=== PATIENT | female | born 1965 | race Caucasian/White ===

== ENCOUNTER → 2017-01-09 | Emergency (ER) | payer OTHER ==
[~2017-01-09] MED LIST: ACETAMINOPHEN 500 MG TABLET (FP) PO ONE; ONDANSETRON 4 MG/2 ML VIAL IVPUSH ONE; ONDANSETRON 4 MG/2 ML VIAL ONE; SODIUM CHLORIDE 1,000 ML IV STA; morphine CARPU-JECT 4 MG/1 ML DISP.SYRIN IVPUSH ONE; morphine CARPU-JECT 4 MG/1 ML DISP.SYRIN ONE
[2017-01-09 21:09] VITALS: BP 156/103; PULSE 102; BMI 24.1
[2017-01-09 22:45] LABS: BASOPHIL 0.8 % (0-2.0); EOSINOPHIL 2.2 % (0-4.5); MCH 30.9 pg (25.7-33.7); MCHC 33.6 g/dl (32.0-36.0); NEUTROPHILS 59.8 % (42.8-82.8); PLATELET COUNT 195 K/MM3 (134-434); RDW 14.6 % (11.6-15.6); WHITE BLOOD COUNT 6.4 K/mm3 (4.0-10.0)
[2017-01-09 23:29] LABS: ALBUMIN 3.9 g/dl (3.4-5.0); ALK PHOS 138 U/L (45-117); ANION GAP 10 (8-16); BILIRUBIN,TOTAL 0.3 mg/dL (0.2-1.0); CO2 30 mmol/L (21-32); CREATININE 0.7 mg/dL (0.55-1.02); GLUCOSE,RANDOM 94 mg/dL (74-106); SGOT/AST 49 U/L (15-37); SGPT/ALT 102 U/L (12-78); TOT PROT 7.4 g/dl (6.4-8.2)
[2017-01-09 23:37] LABS: BILIRUBIN,DIRECT < 0.1 mg/dL (0.0-0.2)
--- NOTE | 2017-01-10 00:31 | PDOC ---
[id number] 100 01/09/17 21:07 01/09/17 21:07 01/09/17 21:07 01/09/17 21:07 ED Treatment Course - LABORATORY CBC & Chemistry Diagram: 01/09/17 22:40 01/09/17 22:40 - ADDITIONAL ORDERS Additional order review: Laboratory Results 01/09/17 01/09/17 22:40 22:40 Sodium 143 Potassium 3.5 Chloride 103 Carbon Dioxide 30 Anion Gap 10 BUN 12 Creatinine 0.7 Random Glucose 94 Calcium 10.0 Total Bilirubin 0.3 Direct Bilirubin < 0.1 AST 49 H ALT 102 H Alkaline Phosphatase 138 H Total Protein 7.4 Albumin 3.9 Total Amylase 66 01/09/17 22:40 RBC 4.05 MCV 92.0 MCHC 33.6 RDW 14.6 MPV 10.0 Neutrophils % 59.8 Lymphocytes % 29.1 Monocytes % 8.1 Eosinophils % 2.2 Basophils % 0.8 - Medications Given in the ED: ED Medications Discontinued Medications Generic Name Dose Route Start Last Admin Trade Name Freq PRN Reason Stop Dose Admin Acetaminophen 975 mg 01/09/17 21:09 01/09/17 23:04 Tylenol - PO 01/09/17 21:10 Not Given ONCE ONE Sodium Chloride 1,000 mls @ 1,000 mls/hr 01/09/17 22:31 01/09/17 23:04 Normal Saline - IV 01/09/17 23:30 1,000 mls/hr ASDIR STA Administration Morphine Sulfate 4 mg 01/09/17 22:31 01/09/17 23:04 Morphine Injection - IVPUSH 01/09/17 22:32 4 mg ONCE ONE Administration Ondansetron HCl 4 mg 01/09/17 22:31 01/09/17 23:04 Zofran Injection IVPUSH 01/09/17 22:32 4 mg ONCE ONE Administration Medical Decision Making - Medical Decision Making 01/10/17 00:31 agree with care from NAREN Cortes *DC/Admit/Observation/Transfer Diagnosis at time of Disposition: Abdominal pain, Fatty liver - Discharge Dispostion Disposition: HOME Condition at time of disposition: Improved - Prescriptions Prescriptions: Esomeprazole Magnesium [Nexium 24Hr] 20 mg PO DAILY #30 capsule. Oxycodone HCl/Acetaminophen [Percocet 5-325 mg Tablet] 1 tab PO Q6H PRN #20 tablet MDD 4 tabs PRN Reason: Severe Pain Ondansetron [Zofran Odt -] 4 mg SL Q6H PRN #20 od.tablet PRN Reason: Nausea - Referrals Referrals: Renee Lyles MD [Staff Physician] - STAFF,NOT ON [Primary Care Provider] - - Patient Instructions Printed Discharge Instructions: DI for Abdominal Pain-Adult Additional Instructions: SEGUIMIENTO CON EL DR. LYLES ESTA SEMANA PARA LA EVALUACIN ADICIONAL. LLAMAR PARA CALIFICAR LA SENAIT. RUDI MEDICAMENTOS ALICIA SE PRESCRIBE. NO CONDUZCA, KENDALL ALCOHOL, NI OPERE MAQUINAS PESADAS MIENTRAS SHAYNE PERCOCET. VUELVA SI JUAN S NTOMAS RESULTAN, O CUALESQUIERA PREOCUPACIONES PARA EVALUACIN MS. TODA CHANDRA PRUEBA ERA NEGATIVA. FOLLOW UP WITH DR. LYLES THIS WEEK FOR FURTHER EVALUATION. CALL TO SCHEDULE APPOINTMENT. TAKE MEDICATIONS PRESCRIBED. DO NOT DRIVE, DRINK ALCOHOL, OR OPERATE HEAVY MACHINERY WHILE TAKING PERCOCET. RETURN IF YOUR SYMPTOMS WORSEN, OR ANY CONCERNS FOR FUTHER EVALUATION. ALL YOUR TEST WERE NEGATIVE. Print Language: PORTUGUESE
--- NOTE | 2017-01-10 00:36 | PDOC ---
History of Present Illness - General Chief Complaint: Pain Stated Complaint: KIDNEY PAIN Time Seen by Provider: 01/09/17 21:04 History Source: Patient, Machine Shop Supervisor Used Exam Limitations: Language Barrier - History of Present Illness Travel History: No Initial Comments: 01/10/17 03:04 51yo Female patient presents to ED c/o Rt upper abd pain "under rib cage" x 3 weeks. Patient states she was seen and evaluated by her PMD this past Saturday, and prescribed Levaquin (UTI). However, patient reports pain worsened with associated chills. Denies n/v/d, fever, cough, CP, diff breathing, or any other complaints at this time. Timing/Duration: reports: constant, getting worse Quality: reports: severe Abdominal Pain Onset Location: reports: RUQ, epigastric Pain Radiation: reports: flank Activities at Onset: reports: no specific activity Treatment Prior to Arrive: improves with: analgesics Past History - Travel Traveled outside of the country in the last 30 days: No Close contact w/someone who was outside of country & ill: No - Past Medical History Allergies/Adverse Reactions: Allergies Allergy/AdvReac Type Severity Reaction Status Date / Time No Known Allergies Allergy Verified 01/09/17 21:06 Home Medications: Ambulatory Orders Levofloxacin [Levaquin -] 500 mg PO DAILY 01/09/17 Esomeprazole Magnesium [Nexium 24Hr] 20 mg PO DAILY #30 capsule. 01/10/17 Ondansetron [Zofran Odt -] 4 mg SL Q6H PRN #20 od.tablet 01/10/17 Oxycodone HCl/Acetaminophen [Percocet 5-325 mg Tablet] 1 tab PO Q6H PRN #20 tablet MDD 4 tabs 01/10/17 Psychiatric Problems: Yes (depression) - Psycho/Social/Smoking Cessation Hx Suicidal Ideation: No Smoking History: Never smoked Have you smoked in the past 12 months: No Information on smoking cessation initiated: No Hx Alcohol Use: No Drug/Substance Use Hx: No Substance Use Type: None Abd/GI Specific PMHX - Complaint Specific PMHX Colitis: No Diverticulitis: No Gall Bladder Disease: No GERD: No Hepatitis: No Irritable Bowel Synd (IBS): No Pancreatitis: No GI Ulcer Disease: No Review of Systems - Review of Systems Able to Perform ROS?: Yes Is the patient limited Maldivian proficient: Yes Constitutional: Yes: Chills. No: Fever, Night Sweats, Weakness Respiratory: No: Cough, Orthopnea, Shortness of Breath, Stridor, Wheezing, Hemoptysis Cardiac (ROS): No: Chest Pain, Edema, Lightheadedness, Palpitations, Syncope, Chest Tightness ABD/GI: No: Constipated, Diarrhea, Nausea, Poor Appetite, Poor Fluid Intake, Rectal Bleeding, Vomiting, Tarry Stools : Yes: Burning, Dysuria. No: Discharge, Flank Pain, Hematuria Musculoskeletal: Yes: Back Pain. No: Joint Swelling, Muscle Pain, Muscle Weakness, Joint Stiffness Integumentary: No: Bruising, Erythema, Rash Neurological: No: Headache, Numbness All Other Systems: Reviewed and Negative *Physical Exam - Vital Signs Last Vital Signs Temp Pulse Resp BP Pulse Ox 102 H 14 156/103 100 01/09/17 21:07 01/09/17 21:07 01/09/17 21:07 01/09/17 21:07 - Physical Exam General Appearance: Yes: Nourished, Appropriately Dressed, Apparent Distress, Moderate Distress. No: Mild Distress, Severe Distress Neck: positive: Trachea midline, Supple. negative: Decreased range of motion, Stridor, Lymphadenopathy (R), Lymphadenopathy (L) Respiratory/Chest: positive: Lungs Clear, Normal Breath Sounds. negative: Respiratory Distress, Accessory Muscle Use, Labored Respiration, Rapid RR, Crackles, Rales, Rhonchi, Stridor, Wheezing Cardiovascular: positive: Regular Rhythm, Regular Rate. negative: Edema, JVD, Murmur Gastrointestinal/Abdominal: positive: Normal Bowel Sounds, Tender (+ RUQ/ Epigastric), Soft. negative: Distended, Guarding, Rebound, Tenderness Lymphatic: negative: Adenopathy Musculoskeletal: positive: Normal Inspection. negative: CVA Tenderness Extremity: positive: Normal Capillary Refill, Normal Inspection, Normal Range of Motion, Pelvis Stable Integumentary: positive: Normal Color, Dry, Warm. negative: Erythema, Rash, Swelling Neurologic: positive: service planner II-XII NML intact, Fully Oriented, Alert, Normal Mood/ Affect, Normal Response, Motor Strength 5/5 ED Treatment Course - LABORATORY CBC & Chemistry Diagram: 01/09/17 22:40 01/09/17 22:40 - ADDITIONAL ORDERS Additional order review: Laboratory Results 01/09/17 01/09/17 22:40 22:40 Sodium 143 Potassium 3.5 Chloride 103 Carbon Dioxide 30 Anion Gap 10 BUN 12 Creatinine 0.7 Random Glucose 94 Calcium 10.0 Total Bilirubin 0.3 Direct Bilirubin < 0.1 AST 49 H ALT 102 H Alkaline Phosphatase 138 H Total Protein 7.4 Albumin 3.9 Total Amylase 66 01/09/17 22:40 RBC 4.05 MCV 92.0 MCHC 33.6 RDW 14.6 MPV 10.0 Neutrophils % 59.8 Lymphocytes % 29.1 Monocytes % 8.1 Eosinophils % 2.2 Basophils % 0.8 - RADIOLOGY Radiology Studies Ordered: Category Date Time Status GALLBLADDER US [US] Stat Ultrasound 01/09/17 22:32 Taken - Medications Given in the ED: ED Medications Discontinued Medications Generic Name Dose Route Start Last Admin Trade Name Freq PRN Reason Stop Dose Admin Acetaminophen 975 mg 01/09/17 21:09 01/09/17 23:04 Tylenol - PO 01/09/17 21:10 Not Given ONCE ONE Sodium Chloride 1,000 mls @ 1,000 mls/hr 01/09/17 22:31 01/09/17 23:04 Normal Saline - IV 01/09/17 23:30 1,000 mls/hr ASDIR STA Administration Morphine Sulfate 4 mg 01/09/17 22:31 01/09/17 23:04 Morphine Injection - IVPUSH 01/09/17 22:32 4 mg ONCE ONE Administration Ondansetron HCl 4 mg 01/09/17 22:31 01/09/17 23:04 Zofran Injection IVPUSH 01/09/17 22:32 4 mg ONCE ONE Administration Progress Note - Progress Note Progress Note: Name: Jun Cramer : 1965 Sex: F Study Date & Time: 01/09/201723:46:12 Description: GALLBLADDER US Machine Shop Supervisor: ([email or web address]) Begin of Report Content Referring Physician: Michaela Cortes Patient Name: Lianna Barahona THIS IS A PRELIMINARY REPORT FROM [facility] [employer] EXAM: Right upper quadrant ultrasound IMAGES: 31 DATE OF SERVICE: 2017-01-09 23:46:12.0 REASON FOR EXAM: Right upper quadrant pain COMPARISON: None FINDINGS: Visualized hepatic parenchyma is homogeneous. The liver measures 13.7 cm in length. There are no obvious gallstones. Gallbladder wall is normal in thickness. Common bile duct diameter within normal limits. Visualized pancreas is unremarkable. There is no hydronephrosis on the right. THIS DOCUMENT HAS BEEN ELECTRONICALLY SIGNED Ramiro Hunt MD 01/10/2017 00:28 MAAME Jaramillo Please call [facility] Specialist [phone] with questions. Name: Jun Cramer : 1965 Sex: F Study Date & Time: 01/10/201704:01:14 Description: ABDOMEN & PELVIS CT WITH CONTR Machine Shop Supervisor: ([email or web address]) Begin of Report Content Referring Physician: Michaela Cortes Patient Name: Lianna Barahona THIS IS A PRELIMINARYREPORT FROM [facility] EXAM: CT abdomen and pelvis with contrast IMAGES: 483 INDICATION: Upper abdominal pain DATE OF SERVICE: 2017-01-10 04:01:14.0 COMPARISON: FINDINGS: Lung bases are clear. The visualized cardiac chambers are normal size and configuration. Normal liver, gallbladder, pancreas, spleen, adrenal glands and kidneys. The stomach and abdominal small and large bowel are normal. There is no aortic aneurysm. There is no significant retroperitoneal lymphadenopathy. The pelvic small and large bowel are normal. The appendix is normal. The uterus and adnexal structures are normal for a 3.3 cm fundal submucosal fibroid which could be a source of vaginal bleeding. Urinary bladder is unremarkable. There is no pelvic free fluid. No discrete pelvic lymphadenopathy is identified. IMPRESSION: No acute pathology. Submucosal fibroid could be a cause of vaginal bleeding. THIS DOCUMENT HAS BEEN ELECTRONICALLY SIGNED Nithin Newman MD 01/10/2017 04:25 MAAME Jaramillo Please call Imaging Travel Specialist [phone] with questions. *DC/Admit/Observation/Transfer Diagnosis at time of Disposition: Fatty liver Abdominal pain Qualifiers: Abdominal location: right upper quadrant Qualified Code(s): R10.11 - Right upper quadrant pain - Discharge Dispostion Disposition: HOME Condition at time of disposition: Improved Admit: No - Prescriptions Prescriptions: Esomeprazole Magnesium [Nexium 24Hr] 20 mg PO DAILY #30 capsule. Oxycodonfartun HCl/Acetaminophen [Percocet 5-325 mg Tablet] 1 tab PO Q6H PRN #20 tablet MDD 4 tabs PRN Reason: Severe Pain Ondansetron [Zofran Odt -] 4 mg SL Q6H PRN #20 od.tablet PRN Reason: Nausea - Referrals Referrals: STAFF,NOT ON [Primary Care Provider] - Renee Lyles MD [Staff Physician] - - Patient Instructions Printed Discharge Instructions: DI for Abdominal Pain-Adult Additional Instructions: SEGUIMIENTO CON EL DR. LYLES ESTA SEMANA PARA LA EVALUACIN ADICIONAL. LLAMAR PARA CALIFICAR LA SENAIT. RUDI MEDICAMENTOS ALICIA SE PRESCRIBE. NO CONDUZCA, KENDALL ALCOHOL, NI OPERE MAQUINAS PESADAS MIENTRAS SHAYNE PERCOCET. VUELVA SI JUAN S NTOMAS RESULTAN, O CUALESQUIERA PREOCUPACIONES PARA EVALUACIN MS. TODA CHANDRA PRUEBA ERA NEGATIVA. FOLLOW UP WITH DR. LYLES THIS WEEK FOR FURTHER EVALUATION. CALL TO SCHEDULE APPOINTMENT. TAKE MEDICATIONS PRESCRIBED. DO NOT DRIVE, DRINK ALCOHOL, OR OPERATE HEAVY MACHINERY WHILE TAKING PERCOCET. RETURN IF YOUR SYMPTOMS WORSEN, OR ANY CONCERNS FOR FUTHER EVALUATION. ALL YOUR TEST WERE NEGATIVE. Print Language: SAMOAN
[2017-01-10 01:25] LABS: URINE APPEARANCE CLEAR; URINE BILIRUBIN NEGATIVE (NEGATIVE); URINE BLOOD NEGATIVE (NEGATIVE); URINE COLOR LTYELLOW; URINE GLUCOSE (UA) NEGATIVE (NEGATIVE); URINE KETONE NEGATIVE (NEGATIVE); URINE LEUK ESTERASE NEGATIVE (NEGATIVE); URINE NITRITE NEGATIVE (NEGATIVE); URINE PROTEIN NEGATIVE (NEGATIVE); URINE UROBILINOGEN NEGATIVE E.U./dl (0.2-1.0)
== END | disposition home or self-care (01) ==
LOC: JER 20:07
PROC: 3E033NZ Introduction of Analgesics, Hypnotics, Sedatives into Peripheral Vein, Percutaneous Approach (ICD-10-PCS; principal; 2017-01-09)
PROC: 3E033GC Introduction of Other Therapeutic Substance into Peripheral Vein, Percutaneous Approach (ICD-10-PCS; 2017-01-09)
PROC: 3E0337Z Introduction of Electrolytic and Water Balance Substance into Peripheral Vein, Percutaneous Approach (ICD-10-PCS; 2017-01-09)
DX: K76.0 Fatty (change of) liver, not elsewhere classified (principal); R10.11 Right upper quadrant pain; F32.9 Major depressive disorder, single episode, unspecified
CPT/HCPCS: 36415; 74177-TC; 76705-TC; 80048; 80076; 81003; 82150; 83690; 84703; 85025; 99282-25